=== PATIENT | male | born 1955 | race Caucasian/White ===

== ENCOUNTER 2020-11-15 09:38 | Emergency (ER) | payer BC, SELFPAY ==
[2020-11-15 09:40] VITALS: BP 121/87; PULSE 84; RESP 19; TEMP 36.9; O2SAT 100; BMI 22.8
--- NOTE | 2020-11-15 10:16 | HMH.EDUTC ---
[facility] [place] Disposition Clinical Impression: URI (upper respiratory infection) Qualifiers: URI type: unspecified URI Qualified Code(s): J06.9 - Acute upper respiratory infection, unspecified Disposition: Home, Self-Care Condition on Discharge: Good Instructions: DI for Cough -- Adult, Guaifenesin, Fluticasone Nasal [place] Additional Instructions: *Monitor Temp, Over the counter Motrin or Tylenol as directed/as needed Tylenol every 4 hours and Motrin every 6 hours (as long as your family doctor has told you that you can take it) for fever or pain. and straight to ER if unable to lower temp less than 101.0 after medication given *Warm salt water gargles may help to soothe the throat *Throat Lozenges *Warm fluids like tea with honey may help to soothe the throat *Sleep elevated *Humidifier/Vaporizer *Flonase 2 sprays in each nostril daily but be aware that it may take 2-3 days before you notice improvement Follow up IMMEDIATELY for new or worsening symptoms or no Noticeable improvement over the next 48-72 hours. 911 for difficulty breathing or swallowing Prescriptions: Fluticasone Propionate [Flonase Allergy Relief NS] 1 spray NS DAILY #1 bot Transmission Status: Received by [facility] #[id number] guaiFENesin [Mucinex 600mg tablet] 1 - 2 tab PO Q12H PRN #20 tab.er.12h PRN Reason: Congestion Transmission Status: Received by [facility] #[id number] Referrals: Brittany Armas [Primary Care Provider] - As needed Time of Disposition: 15:31 Medical Decision Making - Alexis Inquiry Pt receiving controlled substance: No Alexis was queried for this patient: No Vital Signs: 11/15/20 09:40 11/15/20 10:44 Temperature 98.4 F 98.4 F Temperature Source Oral Pulse Rate 84 Pulse Rate [Right Brachial] 84 Respiratory Rate 19 19 Blood Pressure 121/87 Blood Pressure [Right Arm] 121/87 Blood Pressure Mean [Right Arm] 98 Blood Pressure Source [Right Arm] Automatic Cuff Blood Pressure Position [Right Arm] Sitting 02 Sat by Pulse Oximetry 100 Oxygen Delivery Method Room Air Orders (Tests/Meds): ED MEDICATIONS Discontinued Medications Generic Name Dose Route Start Last Admin Trade Name Freq PRN Reason Stop Dose Admin Ceftriaxone Sodium 1 gm 11/15/20 10:29 11/15/20 10:43 Ceftriaxone 1gm Vial IM 11/15/20 10:30 1 gm ONCE ONE Administration Protocol Lidocaine HCl 0 ml 11/15/20 10:29 11/15/20 10:43 Lidocaine 1% 5ml Pf Vial IM 11/15/20 10:30 2.1 ml ONCE ONE Administration Medical Decision Narrative: Discusses CXR and patient declined Patient states that he has taken flonase in the past without reactions or complications [facility] [place] HPI - General Stated complaint: congestion, cough Time Seen by Provider: 11/15/20 10:25 Mode of Arrival: Ambulatory Source of Information: Patient Limitations: No Limitations Description of Symptoms (Recalled from Triage Doc. by RN): PATIENT C/O CHEST CONGESTION AND COUGH SINCE SUNDAY HEENT Symptoms (Recalled from RN notes): No Resp Symptoms (Recalled from RN notes): Yes Skin Symptoms (Recalled from RN notes): No MS Symptoms (Recalled from RN notes): No Functional Status (Recalled from RN notes): WNL - History of Present Illness Provider Complaint: Patient states that he started off about a week ago with nasal congestion and drainage like he gets this time every year with allergies State that he had a scratchy throat States that now feels like it is trying to move into his chest States that throat is better now but still having cough and feeling like it is moving into his chest - Related Data Home Medications Medication Instructions Recorded Confirmed LORazepam [Ativan 1mg tablet] 1 mg PO DAILYP PRN 11/15/20 11/15/20 Previous Rx's Medication Instructions Recorded Fluticasone Propionate [Flonase 1 spray NS DAILY #1 bot 11/15/20 Allergy Relief NS] guaiFENesin [Mucinex 600mg tablet] 1 - 2 tab PO Q12H PRN #20 11/15/20 tab.er.12h
[2020-11-15 10:44] VITALS: BP 121/87; PULSE 84; RESP 19; TEMP 36.9; O2SAT 100
== END 2020-11-15 11:00 | disposition home or self-care (01) ==
PROVIDERS: Emergency Provider Nurse Practitioner; PCP Family Medicine
DX: J06.9 Acute upper respiratory infection, unspecified (principal)
CPT/HCPCS: 96372; 99202; G0463

== ENCOUNTER 2025-02-18 15:00 | Outpatient (RCR) | payer MEDICARE, SELFPAY | END 2025-02-18 23:59 | disposition home or self-care (01) | LOC: PT.CARL 15:00 | PROVIDERS: PCP Family Medicine; Visit Provider Family Medicine | DX: M54.12 Radiculopathy, cervical region (principal) | CPT/HCPCS: 97110; 97112; 97140; 97162 ==

== ENCOUNTER 2025-03-05 15:00 | Outpatient (RCR) | payer MEDICARE, SELFPAY | END 2025-03-09 09:50 | disposition home or self-care (01) | LOC: PT.CARL 15:00 | PROVIDERS: PCP Family Medicine; Visit Provider Family Medicine | DX: M54.12 Radiculopathy, cervical region (principal) | CPT/HCPCS: 97110; 97112; 97140 ==